=== PATIENT | female | born 1970 | race African-American/Black ===

== ENCOUNTER → 2016-09-04 | Outpatient (CLI) | payer MEDICARE, OTHER ==
--- NOTE | 2016-09-07 09:12 | RAD ---
DATE: 09/04/2016 EXAM: DIGITAL DIAGNOSTIC BILATERAL, BREAST LEFT HISTORY: Pulper Tender feeling possible mass medially in the left breast COMPARISON: None This study was interpreted with the benefit of Computerized Aided Detection (CAD ). FINDINGS: The breast parenchyma Is heterogeneiously dense, which could reduce sensitivity of mammography. Breast parenchyma level C. No dominant mass or suspect group of calcifications is seen in either breast new graft targeted ultrasound to the area of concern in the right breast was performed. No soft tissue abnormality is seen. IMPRESSION: Benign findings. If there is a discrete, palpable, abnormality in the left breast biopsy may be warranted despite unremarkable imaging BI-RADS CATEGORY: 2 BENIGN FINDINGS. RECOMMENDED FOLLOW-UP: 12M 12 MONTH FOLLOW-UP PQRS compliance statement: Patient information was entered into a reminder system with a target due date 09/04/2017 for the next mammogram. Mammography is a sensitive method for finding small breast cancers, but it does not detect them all and is not a substitute for careful clinical examination. A negative mammogram does not negate a clinically suspicious finding and should not result in delay in biopsying a clinically suspicious abnormality. "Our facility is accredited by the [employer] Mammography Program." MTDD
== END | disposition home or self-care (01) ==
LOC: MAMMO 14:11
PROVIDERS: ATTEND Family Medicine
DX: N63 Unspecified lump in breast (principal)
CPT/HCPCS: 76641; G0204; 77066

== ENCOUNTER 2018-12-27 07:03 | Emergency (ER) | payer MEDICARE, OTHER ==
[~2018-12-27] VITALS: Ht 172.7 cm; Wt 61.2 kg
[2018-12-27 07:34] VITALS: BP 154/104
[2018-12-27] MEDS ORDERED: CIPR5DRO OS (08:01)
--- NOTE | 2018-12-27 08:01 | PHYS DOC ---
Past Medical History Additional Past Medical Histor: mental retardation Past Surgical History: No Surgical History Alcohol Use: None Drug Use: None Adult General Chief Complaint Chief Complaint: EYE PROBLEMS HPI HPI 48-year-old along with her sister/guardian. The patient has a history of mental retardation. Patient's sister states that she noticed that her left eye was red yesterday, and this morning had purulent drainage present. Patient denies any ocular pain, or definite vision changes, history is limited secondary to the patient's she otherwise denies any complaints or pain. She does not wear contact Review of Systems Review of Systems Constitutional: Denies fever or chills [] Eyes: Denies change in visual acuity,or eye pain [] HENT: Reports recent nasal congestion, denies sore throat [] Respiratory: Denies cough or shortness of breath [] GI: Denies abdominal pain, nausea, vomiting, bloody stools or diarrhea [] Integument: Denies rash or skin lesions [] Neurologic: Denies headache Allergies Allergies Allergies Coded Allergies Type Severity Reaction Last Updated Verified No Known Drug Allergies 12/27/18 No Physical Exam Physical Exam PHYSICAL EXAM: CONSTITUTIONAL: Well developed, well nourished HEAD: normocephalic, atraumatic EENT: PERRL, EOMI. there is no obvious corneal defect in the left eye. The left conjunctiva is erythematous, there is a small amount of purulent material draining from the medial aspect of the left eye. The right Conjunctiva is normal color, sclerae non-icteric; moist mucous membranes. NECK: Supple, non-tender; no meningismus. LUNGS: Lungs CTA, breathing even and unlabored. Normal air movement. HEART: Regular rate and rhythm, no murmur EXTREM: Normal ROM NEURO: Alert; normal speech, somewhat delayed cognition consistent with the patient's underlying history of mental retardation, CN's grossly intact; strength grossly intact without focal deficit. Current Patient Data Vital Signs Vital Signs Date Time Temp Pulse Resp B/P (MAP) Pulse Ox O2 Delivery O2 Flow Rate FiO2 12/27/18 07:34 99.2 114 18 154/104 (121) 100 Room Air 99.2 EKG EKG [] Radiology/Procedures Radiology/Procedures [] Course & Med Decision Making Course & Med Decision Making Discussed diagnosis with the patient's sister and guarding, the need for close follow-up, and return precautions in detail. Dragon Disclaimer Dragon Disclaimer This electronic medical record was generated, in whole or in part, using a voice recognition dictation system. Departure Departure Impression: Primary Impression: Conjunctivitis Disposition: HOME, SELF-CARE Condition: STABLE Referrals: AUSTEN EDMONDS MD (PCP) Patient Instructions: Conjunctivitis (Viral and Bacterial) Scripts Ciprofloxacin Hcl (CILOXAN) 5 Ml Drops 1 DROP OS QID for 7 Days, #5 ML Prov: KADEEM GLOVER MD 12/27/18 KADEEM GLOVER MD Dec 27, 2018 08:01
== END 2018-12-27 08:11 | disposition home or self-care (01) ==
LOC: ER 07:03
DX: H10.9 Unspecified conjunctivitis (principal)
CPT/HCPCS: 99283

== ENCOUNTER → 2019-08-01 | Outpatient (CLI) | payer MEDICARE, OTHER ==
[~2019-08-01] MED LIST: CIPR5DRO OS
--- NOTE | 2019-08-01 16:12 | KCIC ---
EXAM: Pelvic sonogram. HISTORY: Menorrhagia. TECHNIQUE: Sonographic imaging of the pelvis was performed. COMPARISON: None. FINDINGS: The uterus measures 9.6 x 5.0 x 4.0 cm. The endometrial stripe measures less than 3 mm in thickness. The ovaries are normal in size and contain small antral follicles. There is normal ovarian blood flow. There is no pelvic free fluid. IMPRESSION: Unremarkable pelvic sonogram. Electronically signed by: Mireya Jacob MD (08/01/2019 4:09 PM) [place] [id number]
== END | disposition home or self-care (01) ==
LOC: KCIC US 14:39
PROVIDERS: ATTEND Nurse Practitioner Gerontology
DX: N92.1 Excessive and frequent menstruation with irregular cycle (principal)
CPT/HCPCS: 76856